=== PATIENT | male | born 1965 | race Asian ===

== ENCOUNTER 2021-09-01 23:00 | Emergency (ER) | payer OTHER ==
[~2021-09-01] VITALS: Ht 167.6 cm; Wt 74.8 kg
[2021-09-01 23:00] VITALS: BP 114/83
--- NOTE | 2021-09-01 23:00 | NUR ---
PAT FROM HOME WITH C/O BACK PAIN, 12/01 S/P LIFTING.
[2021-09-01] MEDS ORDERED: KETOROLAC 60 MG/2 ML VIAL IM ONE (23:45)
[2021-09-01] MEDS ORDERED: KETO10TA2 PO (23:45)
[2021-09-01] MEDS ORDERED: CYCLOBENZAPRINE 10 MG TAB PO ONE (23:45)
[2021-09-01] MEDS ORDERED: CYCL-711 PO (23:45)
--- NOTE | 2021-09-01 23:45 | NUR ---
55 Y/O MALE BIBA [facility] HOME, C/O LOWER BACK PAIN TONIGHT. PT STATES HE WAS MOVING BOXES AT HOME AND HIS BACK BECAME SORE. PT HAS A HX OF CHRONIC LOWER BACK PAIN. NO BRUISING, REDNESS, OR TRAUMA NOTED. A/OX4, UNLABORED BREATHING AMBULATION COMPARAMISED DUE TO PAIN. [place] SPEAKING. HX: CHRONIC BACK PAIN NKA
[2021-09-02] MEDS ORDERED: HYDROcodone/APAP 7.5/325 MG 1 TAB PO ONE (02:35)
[2021-09-02 04:07] VITALS: BP 122/88
--- NOTE | 2021-09-02 04:09 | NUR ---
Patient discharged with v/s stable. Written and verbal after care instructions given and explained. Patient alert, oriented and verbalized understanding of instructions. Wheel Chair Assisted with to car. All questions addressed prior to discharge. ID band removed. Patient advised to follow up with PMD. Rx of FLEXERIL AND KETOROLAC TROMETHAMINE given. Patient educated on indication of medication including possible reaction and side effects. Opportunity to ask questions provided and answered. VSS, A/OX4, AMBULATORY, UNLABORED BREATHING, AND CALM DEMEANOR.
== END 2021-09-02 04:07 | disposition home or self-care (01) ==
LOC: MED 23:00
DX: S39.012A Strain of muscle, fascia and tendon of lower back, initial encounter (principal); F17.210 Nicotine dependence, cigarettes, uncomplicated; Z79.899 Other long term (current) drug therapy; Z71.6 Tobacco abuse counseling; X50.0XXA Overexertion from strenuous movement or load, initial encounter; Y93.89 Activity, other specified; Y92.098 Other place in other non-institutional residence as the place of occurrence of the external cause; Y99.8 Other external cause status
CPT/HCPCS: 96372; 99283; J1885